=== PATIENT | female | born 1970 | race Two or more races ===

== ENCOUNTER 2017-10-19 21:45 | Observation (INO) | payer OTHER ==
--- NOTE | 2017-10-19 22:45 | PDOC ---
History of Present Illness - General History Source: Patient Exam Limitations: No Limitations - History of Present Illness Initial Comments: 10/20/17 00:13 The patient is a 47 year old female with no significant past medical history who presents to the ED with complaints of chest pain for 5 days and headache since earlier today. The patient reports she was at work when she went to open a window and twisted her body on Friday. Since then, she state she developed left sided chest pain that is worsened when she lays down. Patient also states she developed a left sided frontal headache earlier today. Denies fever or chills. Denies shortness of breath or cough. Denies palpitations. Denies any other symptoms. <David Calhoun - Last Filed: 10/20/17 00:13> <Trice Pickett - Last Filed: 10/20/17 02:42> - General Chief Complaint: Pain Stated Complaint: PAIN Time Seen by Provider: 10/19/17 22:26 Past History <David Calhoun - Last Filed: 10/20/17 00:13> - Past Medical History Anemia: Yes COPD: No - Surgical History Appendectomy: Yes - Suicide/Smoking/Psychosocial Hx Smoking Status: No Smoking History: Never smoked Have you smoked in the past 12 months: No Number of Cigarettes Smoked Daily: 0 Information on smoking cessation initiated: No Hx Alcohol Use: No Drug/Substance Use Hx: No Substance Use Type: None <Trice Pickett - Last Filed: 10/20/17 02:42> - Past Medical History Allergies/Adverse Reactions: Allergies Allergy/AdvReac Type Severity Reaction Status Date / Time No Known Allergies Allergy Verified 10/19/17 22:17 Home Medications: Ambulatory Orders Albuterol Sulfate Inhaler - [Ventolin HFA Inhaler -] 2 inh IH Q4H PRN #1 inh 05/28 Cefdinir [Omnicef -] 300 mg PO BID #20 capsule 07/28/12 Fluticasone Prop 0.05% Nasal [Flonase] 2 spray NS DAILY #1 spray.pump 07/28/12 CeFURoxime AXETIL [Ceftin] 250 mg PO BID #20 tablet 11/24/14 Naproxen [Naprosyn -] 500 mg PO BID PRN #14 tablet 11/24/14 Phenazopyridine HCl [Pyridium] 100 mg PO BID #6 tablet 11/24/14 Review of Systems - Review of Systems Able to Perform ROS?: Yes Comments:: 10/20/17 00:13 CONSTITUTIONAL: Absent: fever, chills, diaphoresis, generalized weakness, malaise, loss of appetite HEENT: Absent: rhinorrhea, nasal congestion, throat pain, throat swelling, difficulty swallowing, mouth swelling, ear pain, eye pain, visual Changes CARDIOVASCULAR: + chest pain Absent: syncope, palpitations, irregular heart rate, lightheadedness, peripheral edema RESPIRATORY: Absent: cough, shortness of breath, dyspnea with exertion, orthopnea, wheezing, stridor, hemoptysis GASTROINTESTINAL: Absent: abdominal pain, abdominal distension, nausea, vomiting, diarrhea, constipation, melena, hematochezia GENITOURINARY: Absent: dysuria, frequency, urgency, hesitancy, hematuria, flank pain, genital pain MUSCULOSKELETAL: Absent: myalgia, arthralgia, joint swelling SKIN: Absent: rash, itching, pallor HEMATOLOGIC/IMMUNOLOGIC: Absent: easy bleeding, easy bruising, lymphadenopathy, frequent infections ENDOCRINE: Absent: unexplained weight gain, unexplained weight loss, heat intolerance, cold intolerance NEUROLOGIC: + headache Absent: focal weakness or paresthesias, dizziness, unsteady gait, seizure, mental status changes, bladder or bowel incontinence PSYCHIATRIC: Absent: anxiety, depression, suicidal or homicidal ideation, hallucinations. All Other Systems: Reviewed and Negative <David Calhoun - Last Filed: 10/20/17 00:13> *Physical Exam - Vital Signs Last Vital Signs Temp Pulse Resp BP Pulse Ox 98.1 F 79 20 177/99 100 10/19/17 22:17 10/19/17 22:17 10/19/17 22:17 10/19/17 22:17 10/19/17 22:17 - Physical Exam Comments: 10/20/17 00:13 GENERAL: Well developed, well nourished. Awake and alert. No acute distress. HEENT: Normocephalic, atraumatic. PERRLA, EOMI. No conjunctival pallor. Sclera are non- icteric. Moist mucous membranes. Oropharynx is clear. NECK: Supple. Full ROM. No JVD. Carotid pulses 2+ and symmetric, without bruits. No thyromegaly. No lymphadenopathy. CARDIOVASCULAR:+ Left sided chest pain when lying down, relieved when sitting up Regular rate and rhythm. No murmurs, rubs, or gallops. Distal pulses are 2+ and symmetric. PULMONARY: No evidence of respiratory distress. Lungs clear to auscultation bilaterally. No wheezing, rales or rhonchi. ABDOMINAL: Soft. Non-tender. Non-distended. No rebound or guarding. No organomegaly. Normoactive bowel sounds. MUSCULOSKELETAL Normal range of motion at all joints. No bony deformities or tenderness. No CVA tenderness. EXTREMITIES: No cyanosis. No clubbing. No edema. No calf tenderness. SKIN: Warm and dry. Normal capillary refill. No rashes. No jaundice. NEUROLOGICAL: Alert, awake, appropriate. Cranial nerves 2-12 intact. No deficits to light touch and temperature in face, upper extremities and lower extremities. No motor deficits in the in face, upper extremities and lower extremities. Normoreflexic in the upper and lower extremities. Normal speech. Toes are down- going bilaterally. Gait is normal without ataxia. PSYCHIATRIC: Cooperative. Good eye contact. Appropriate mood and affect. <David Calhoun - Last Filed: 10/20/17 00:13> - Vital Signs Last Vital Signs Temp Pulse Resp BP Pulse Ox 98.1 F 79 20 177/99 100 10/19/17 22:17 10/19/17 22:17 10/19/17 22:17 10/19/17 22:17 10/19/17 22:17 <Trice Pickett - Last Filed: 10/20/17 02:42> ED Treatment Course - LABORATORY CBC & Chemistry Diagram: 10/20/17 00:01 10/20/17 00:01 <Trice Pickett - Last Filed: 10/20/17 02:42> Medical Decision Making - Medical Decision Making 10/20/17 00:09 Pt complains of Left sided CP when she lies down. Pain is improved when she sits up. THis may be pericarditis. 10/20/17 02:29 Pt has an enlarged cardiac silhouette on PA/LAT CXR and I will admit her for cardiac workup and echocardiogram. 10/20/17 02:40 Pt had a borderline enlarged heart in 2011. Today heart silhouette is larger. Pt ever elevated BP on arrival we will repeat vitals. 10/20/17 02:41 Pt still complaining of pain. She will get a cardio consult in the AM to r/o cardiomyopathy. <Trice Pickett - Last Filed: 10/20/17 02:42> *DC/Admit/Observation/Transfer - Attestations Scribe Attestion: 10/20/17 00:13 Documentation prepared by David Calhoun, acting as medical researcher for Trice Pickett MD <David Calhoun - Last Filed: 10/20/17 00:13> - Discharge Dispostion Admit: Yes <Trice Pickett - Last Filed: 10/20/17 02:42> Diagnosis at time of Disposition: Cardiomegaly, Chest pain, Cardiomyopathy - Discharge Dispostion Condition at time of disposition: Guarded - Referrals Referrals: Walker Bolton MD [Primary Care Provider] - - Patient Instructions - Post Discharge Activity
[2017-10-19] MEDS ORDERED: METHOCARBAMOL 500 MG TABLET PO ONE (22:47)
[2017-10-19] MEDS ORDERED: METHOCARBAMOL 500 MG TABLET ONE (23:45)
[2017-10-20 00:21] LABS: BASO % 0.6 % (0-2.0); EOS % 1.9 % (0-4.5); HEMATOCRIT 38.8 % (32.4-45.2); HEMOGLOBIN 13.7 GM/dL (10.7-15.3); LYMPH % 29.2 % (8-40); MCH 30.3 pg (25.7-33.7); MCHC 35.2 g/dl (32.0-36.0); MEAN CELL VOLUME 86.2 fl (80-96); MEAN PLT VOLUME 9.3 fl (7.5-11.1); MONO % 4.9 % (3.8-10.2); NEUT % 63.4 % (42.8-82.8); PLATELET COUNT 271 K/MM3 (134-434); RDW 13.2 % (11.6-15.6); WHITE BLOOD COUNT 10.2 K/mm3 (4.0-10.0)
[2017-10-20 00:54] LABS: ALBUMIN 4.1 g/dl (3.4-5.0); ALK PHOS 68 U/L (45-117); ANION GAP 8 (8-16); BILIRUBIN,TOTAL 0.2 mg/dL (0.2-1.0); BLOOD UREA NITROGEN 13 mg/dL (7-18); CALCIUM 9.3 mg/dL (8.5-10.1); CHLORIDE 103 mmol/L (98-107); CO2 30 mmol/L (21-32); CREATININE 0.6 mg/dL (0.55-1.02); GLUCOSE,RANDOM 100 mg/dL (74-106); POTASSIUM 4.3 mmol/L (3.5-5.1); SGOT/AST 17 U/L (15-37); SGPT/ALT 24 U/L (12-78); SODIUM 141 mmol/L (136-145); TOT PROT 7.9 g/dl (6.4-8.2)
[2017-10-20] MEDS ORDERED: KETOROLAC TROMETHAMINE 30 MG/1 ML VIAL IVPUSH ONE (00:55)
[2017-10-20] MEDS ORDERED: IBUPROFEN 600 MG TABLET (FP) PO ONE ×2 (01:14→01:15)
--- NOTE | 2017-10-20 02:36 | PN ---
Teaching Attending Note Name of Resident: Teri Antonio ATTENDING PHYSICIAN STATEMENT I saw and evaluated the patient. I reviewed the resident's note and discussed the case with the resident. I agree with the resident's findings and plan as documented. SUBJECTIVE: 47 f PMhx. None, who presents after 5 day hx. of chest pain after she opened a window. States pain started beneath her left breast and radiated to her mid chest, but now improved. Notes she continues to feel sore underneath her left breast. Denies any shortness of breath. NO orthopnea. No edema, no palpitations. No nausea, vomiting, or diarrhea. No diaphoresis. OBJECTIVE: Physical: VS: Vital Signs Period Temp Pulse Resp BP Sys/Cardoza Pulse Ox Last 24 Hr 98.1 F 79 20 177/99 100 GEN:NAD, Resting in bed, AA0X3 HEENT:NCAT, PERRL, Throat without erythema or exudates CARD: RRR S1, S2 RESP: CTAB, TTP underneath left breast ABD: BSX4, NTD to palpation EXT: - C/C/E CBCD WBC 10.2 K/mm3 (4.0-10.0) H D 10/20/17 00:01 RBC 4.50 M/mm3 (3.60-5.2) 10/20/17 00:01 Hgb 13.7 GM/dL (10.7-15.3) 10/20/17 00:01 Hct 38.8 % (32.4-45.2) 10/20/17 00:01 MCV 86.2 fl (80-96) 10/20/17 00:01 MCHC 35.2 g/dl (32.0-36.0) 10/20/17 00:01 RDW 13.2 % (11.6-15.6) 10/20/17 00:01 Plt Count 271 K/MM3 (134-434) 10/20/17 00:01 MPV 9.3 fl (7.5-11.1) 10/20/17 00:01 CMP Sodium 141 mmol/L (136-145) 10/20/17 00:01 Potassium 4.3 mmol/L (3.5-5.1) 10/20/17 00:01 Chloride 103 mmol/L (98-107) 10/20/17 00:01 Carbon Dioxide 30 mmol/L (21-32) 10/20/17 00:01 Anion Gap 8 (8-16) 10/20/17 00:01 BUN 13 mg/dL (7-18) 10/20/17 00:01 Creatinine 0.6 mg/dL (0.55-1.02) 10/20/17 00:01 Creat Clearance w eGFR > 60 (>60) 10/20/17 00:01 Random Glucose 100 mg/dL (74-106) 10/20/17 00:01 Calcium 9.3 mg/dL (8.5-10.1) 10/20/17 00:01 Total Bilirubin 0.2 mg/dL (0.2-1.0) D 10/20/17 00:01 AST 17 U/L (15-37) 10/20/17 00:01 ALT 24 U/L (12-78) 10/20/17 00:01 Alkaline Phosphatase 68 U/L (45-117) 10/20/17 00:01 Total Protein 7.9 g/dl (6.4-8.2) 10/20/17 00:01 Albumin 4.1 g/dl (3.4-5.0) 10/20/17 00:01 CARDIAC ENZYMES Creatine Kinase 61 IU/L (26-192) 10/20/17 00:01 Troponin I < 0.02 ng/ml (0.00-0.05) 10/20/17 00:01 CXR: Mild Cardiomegaly (unchanged from 2012) EKG: NSR ASSESSMENT AND PLAN: 47 F with Atypical Chest Pain 1.) Atypical Chest Pain - Most likely Musculoskeltal - Trend Trop/EKG - NSAIDS for pain relief 2.) HTN- Uncontrolled - Possibly due to pain - Pain control - If not resolved, ADD. Anti-HTN 3.) Dvt Ppx - SCDs Place in Obs-Tele
[2017-10-20] MEDS ORDERED: IBUPROFEN 600 MG TABLET (FP) PO PRN (03:15)
--- NOTE | 2017-10-20 03:30 | HP ---
CHIEF COMPLAINT: Chest Pain PCP: Dr Walker Bolton HISTORY OF PRESENT ILLNESS: 47yo Ugandan speaking healthy F presents to the ER with pain to her L side. At her job 1 week ago, she opened a heavy window, twisted her body, and felt a muscle cramp to her L side that started under her breast and radiated to the back. Mild relief w/ ibuprofen at home. Today, she says the same crampy pain has progressed up into her L breast. Pain is positional, and at times causes her to splint. No cardiac hx. No nausea, diaphoresis, palpitations. In the ER, she was hypertensive to 170s (likely due to pain). Her pain improved with NSAIDs and muscle relaxant. Her EKG was normal sinus wnl. CXR shows mildly enlarged heart (unchanged from prior). Two sets of trops were neg Recent Travel: Denies PAST MEDICAL HISTORY: Denies PAST SURGICAL HISTORY: Appendectomy, Hysterectomy, Social History: Smoking: Denies Alcohol: Deines Drugs: Denies Allergies: No Known Allergies Allergy (Verified 10/19/17 22:17) Home Medications Medication Instructions Recorded NK [No Known Home Medication] 10/20/17 REVIEW OF SYSTEMS CONSTITUTIONAL: Absent: fever, chills, diaphoresis, generalized weakness, malaise, loss of appetite, weight change HEENT: Absent: rhinorrhea, nasal congestion, throat pain, throat swelling, difficulty swallowing, mouth swelling, ear pain, CARDIOVASCULAR: Absent: chest pain, syncope, palpitations, irregular heart rate , lightheadedness, peripheral edema RESPIRATORY: Absent: cough, shortness of breath, dyspnea with exertion, orthopnea, wheezing, stridor, hemoptysis GASTROINTESTINAL:Absent: abdominal pain, abdominal distension, nausea, vomiting , diarrhea, constipation, melena, hematochezia GENITOURINARY: Absent: dysuria, frequency, urgency, hesitancy, hematuria, flank pain, genital pain MUSCULOSKELETAL: +myalgia Absent: arthralgia, joint swelling, back pain, neck pain SKIN: Absent: rash, itching, pallor HEMATOLOGIC/IMMUNOLOGIC: Absent: easy bleeding, easy bruising, lymphadenopathy, frequent infections ENDOCRINE:Absent: unexplained weight gain, unexplained weight loss, heat intolerance, cold intolerance NEUROLOGIC: Absent: headache, focal weakness or paresthesias, dizziness, unsteady gait, seizure, mental status changes, PSYCHIATRIC: Absent: anxiety, depression, suicidal or homicidal ideation, hallucinations. PHYSICAL EXAMINATION Vital Signs Period Temp Pulse Resp BP Sys/Cardoza Pulse Ox Last 24 Hr 98.1 F 79 20 177/99 100 GEN: AAOx3, NAD, Lying comfortably HEENT: PERRLA, EOMi, no JVD CV: S1, S2, RRR LUNG: CTABl ABD: Soft, nt, nd MSK: +chest wall tenderness under L breast, normal msk strength, no edema/ erythema NEURO: CN 2-12 intact, no sensation deficits ASSESSMENT/PLAN: 47yo [place]an speaking healthy F presents to the ER with pain to her L side that radiated into her L chest. # Chest Pain -- Most likely musculoskeletal from heavy lifting. HEART Score 1 for age, low risk. Low likelihood of pericarditis in light of unchanged CXR and normal EKG. Will monitor on tele until second trop. NSAIDs and heat pack for pain. Cardio was consulted in the ER. # HTN -- No hisotry, likely from pain. Monitor as pain resolves. If not, consider starting anti-HTN agent # FEN/Ppx -- No IVF, reg diet, scd # Dispo -- Tele obs Case d/w Dr Antonio & Dr Hitesh Lorenzo MD - pgY1 [employer] Consultant Visit type - Emergency Visit Emergency Visit: Yes ED Registration Date: 10/20/17 Care time: The patient presented to the Emergency Department on the above date and was hospitalized for further evaluation of their emergent condition. - New Patient This patient is new to me today: No - Critical Care Critical Care patient: No Hospitalist Screening - Colonoscopy Questionnaire Colonoscopy Questionnaire: Colonoscopy Questionnaire - Patient: 50 - 75 years old and never had a screening colonoscopy: Unknown History of colon or rectal polyps, or CA: Unknown History of IBD, Crohn's disease or UC: Unknown History of abdominal radiation therapy as a child: Unknown - Relative: 1 with colon or rectal CA, or polyps at age 60 or younger: Unknown Colon or rectal CA diagnosed at age 45 or younger: Unknown Multiple relatives with colon or rectal CA: Unknown - Outcome: Screening Result: Negative Screen
[2017-10-20 06:12] LABS: HEMATOCRIT 37.3 % (32.4-45.2); HEMOGLOBIN 12.9 GM/dL (10.7-15.3); MCH 29.9 pg (25.7-33.7); MCHC 34.6 g/dl (32.0-36.0); MEAN CELL VOLUME 86.3 fl (80-96); PLATELET COUNT 242 K/MM3 (134-434); RBC 4.32 M/mm3 (3.60-5.2); RDW 13.2 % (11.6-15.6); WHITE BLOOD COUNT 8.5 K/mm3 (4.0-10.0)
[2017-10-20 06:21] VITALS: TEMP 98.3
[2017-10-20 06:41] LABS: ANION GAP 3 (8-16); BLOOD UREA NITROGEN 10 mg/dL (7-18); CALCIUM 8.5 mg/dL (8.5-10.1); CHLORIDE 106 mmol/L (98-107); CO2 31 mmol/L (21-32); CREATININE 0.6 mg/dL (0.55-1.02); GLUCOSE,RANDOM 94 mg/dL (74-106); MAGNESIUM 1.9 mg/dL (1.8-2.4); PHOSPHOROUS 4.4 mg/dL (2.5-4.9); POTASSIUM 4.3 mmol/L (3.5-5.1); SODIUM 140 mmol/L (136-145)
--- NOTE | 2017-10-20 10:41 | EKG ---
Test Reason : Blood Pressure : / mmHG Vent. Rate : 076 BPM Atrial Rate : 076 BPM P-R Int : 144 ms QRS Dur : 092 ms QT Int : 398 ms P-R-T Axes : 051 044 033 degrees QTc Int : 447 ms NORMAL SINUS RHYTHM NORMAL ECG WHEN COMPARED WITH ECG OF 24-DEC-2011 16:22, NO SIGNIFICANT CHANGE WAS FOUND Confirmed by PAM LCARK MD ([id number]) on 10/20/2017 10:41:14 AM Referred By: Confirmed By:PAM CLARK MD
--- NOTE | 2017-10-20 12:07 | DS ---
Physical Examination Vital Signs: Vital Signs Temperature 98.3 F 10/20/17 02:45 Pulse Rate 72 10/20/17 02:45 Respiratory Rate 18 10/20/17 02:45 Blood Pressure 168/84 10/20/17 02:45 O2 Sat by Pulse Oximetry (%) 100 10/20/17 02:45 Findings/Remarks: The patient refused exam Labs: CBC, BMP 10/20/17 06:01 10/20/17 06:01 Discharge Summary Reason For Visit: CARDIOMEGALY, CHEST PAIN Current Active Problems Chest pain (Acute) Hospital Course: This is a 47 year old female with no significant PMHx who presented to the ED with chest pain for 5 days after opening a window on Friday. The patient reports chest pain improved with NSAIDS. Trop x3 negative. EKG with normal sinus rhythm @76. Chest X-ray with no evidence of active pulmonary disease The patient was awaiting cardiology evaluation and has decided to leave against medical advice. The patient displayed the capacity to make her own decisions. Discussed with the patient all test results and that the plan was to be evaluated by a genetic physician. The risks leaving the hospital prior to a cardiology evaluation for further cardiac testing was discussed, and all questions were fully answered with family at the bedside. The patient understood the risks and is leaving against medical advice. Cardiology recommendation provided for outpatient follow-up. Condition: Guarded - Instructions Referrals: Walker Bolton MD [Primary Care Provider] - Leland Levi MD [Staff Physician] - (Please follow-up with Dr. Levi (cardiology) as soon as you can (within the next 24 hours) to have your chest pain evaluated. ) Disposition: AGAINST MEDICAL ADVICE - Home Medications Comprehensive Discharge Medication List: Ambulatory Orders NK [No Known Home Medication] 10/20/17 This patient is new to me today: Yes Date on this admission: 10/20/17 Emergency Visit: Yes ED Registration Date: 10/20/17 Care time: The patient presented to the Emergency Department on the above date and was hospitalized for further evaluation of their emergent condition. Critical Care patient: No - Discharge Referral Referred to [facility] Med P.C[facility] No
[2017-10-20 12:57] VITALS: BP 130/78; PULSE 77; BMI 12.7
== END 2017-10-20 12:29 | disposition left against medical advice (07) ==
LOC: JER 21:45 → JERBED 10-20 02:42
PROVIDERS: ADMIT Internal Medicine; ATTEND Registered Nurse
DX: R07.9 Chest pain, unspecified (principal); I51.7 Cardiomegaly; I42.9 Cardiomyopathy, unspecified; I10 Essential (primary) hypertension
CPT/HCPCS: 36415; 71046-TC-FY; 80048; 80053; 82550; 83735; 83880; 84100; 84484; 84703; 85025; 85027; 93005; 93010; 99283-25; G0378

== ENCOUNTER 2022-09-16 04:27 | Day surgery (SDC) | payer OTHER ==
[2022-09-10 15:41] VITALS: BMI 34.0
[2022-09-16] MEDS ORDERED: MIDAZOLAM HCL 2 MG/2 ML SINGLE DOSE VIAL ONE (13:40)
[2022-09-16 14:14] VITALS: RESP 20; TEMP 97.8
[2022-09-16 15:43] VITALS: BP 148/79; PULSE 66
== END 2022-09-16 15:43 | disposition home or self-care (01) ==
LOC: JASU-SURG 04:27
PROVIDERS: ATTEND Urology
PROC: 0TF4XZZ Fragmentation in Left Kidney Pelvis, External Approach (ICD-10-PCS; principal; 2022-09-16 13:30)
DX: N20.0 Calculus of kidney (principal)
CPT/HCPCS: 82962